=== PATIENT | female | born 1935 | race Caucasian/White ===

== ENCOUNTER → 2016-09-18 | Outpatient (CLI) | payer MEDICARE, BC ==
[~2016-09-18] MED LIST: ALPR0.25 PO; ASPI1TAB69 PO; CIPR500T2 PO; CLIN1CAP6 PO; CLOB0.05 TOPICAL; ESTR42.5V VAGINAL; HYDR500C2 PO; LOSA50TA2 PO; METO50TA11 PO; TERC0.4C2 VAGINAL; TRIA37.53 PO; TUMS500C CHEW; TURM500C PO; VITA10007 PO; [UNRECOGNIZED DRUG - CODE] TOPICAL
== END ==
LOC: HRSP 09:49
PROVIDERS: ATTEND Internal Medicine Cardiovascular Disease
DX: R06.02 Shortness of breath (principal)
CPT/HCPCS: 94060; 94726; 94729